=== PATIENT | male | born 1960 | race Caucasian/White ===

== ENCOUNTER 2018-01-17 07:53 | Day surgery (SDC) | payer OTHER ==
[2018-01-09 11:57] VITALS: BMI 50.2
[2018-01-17 08:18] VITALS: TEMP 98.2
[2018-01-17] MEDS ORDERED: PROPOFOL 20 ML ONE ×2 (09:12)
[2018-01-17 10:23] VITALS: BP 121/71; PULSE 82
--- NOTE | 2018-01-19 15:32 | PATH ---
Surgical Pathology Report Patient Name: ELEAZAR SEXTON [facility]. Rec. #: [id number] /Age/Gender: 1960 (Age: 57) / M Account: [id number] Location: [facility] Taken: 01/17/2018 Received: 01/17/2018 Reported: 01/19/2018 Physicians: Dwaine Sainz M.D. Specimen(s) Received A: SPLENIC FLEXURE B: LEFT COLON Clinical History Rule out colon cancer, history of polyps Postoperative diagnosis: Diverticulosis, colon polyps Final Diagnosis A. SPLENIC FLEXURE, POLYP, POLYPECTOMY: TUBULAR ADENOMA. B. LEFT COLON, POLYP, BIOPSY: TUBULAR ADENOMA. Electronically Signed Marti Cardona M.D. Gross Description A. Received in formalin, labeled "splenic flexure polyp" is a garcia, irregular portion of soft tissue measuring 0.4 cm. in greatest dimension. The specimen is submitted in toto in one cassette. B. Received in formalin, labeled "left colon polyp" is a garcia, irregular portion of soft tissue measuring 0.2 cm. in greatest dimension. The specimen is submitted in toto in one cassette. DL01/18/2018 saudi01/18/2018
== END 2018-01-17 10:10 | disposition home or self-care (01) ==
LOC: FASU-ENDO 07:53
PROVIDERS: ATTEND Internal Medicine Gastroenterology
PROC: 0DBM8ZZ Excision of Descending Colon, Via Natural or Artificial Opening Endoscopic (ICD-10-PCS; 2018-01-17)
PROC: 0DBL8ZX Excision of Transverse Colon, Via Natural or Artificial Opening Endoscopic, Diagnostic (ICD-10-PCS; principal; 2018-01-17 08:30)
DX: Z86.010 Personal history of colon polyps (principal); K57.30 Diverticulosis of large intestine without perforation or abscess without bleeding; D12.3 Benign neoplasm of transverse colon; D12.4 Benign neoplasm of descending colon; I25.10 Atherosclerotic heart disease of native coronary artery without angina pectoris; I10 Essential (primary) hypertension; Z95.5 Presence of coronary angioplasty implant and graft; E78.00 Pure hypercholesterolemia, unspecified
CPT/HCPCS: 88305-TC

== ENCOUNTER 2021-06-03 07:21 | Day surgery (SDC) | payer OTHER ==
[2021-06-01 09:59] VITALS: BMI 48.7
[2021-06-03] MEDS ORDERED: LIDOCAINE HCL/PF 2% SDV 5ML VIAL ONE (07:59)
[2021-06-03] MEDS ORDERED: PROPOFOL 20 ML ONE ×5 (07:59→08:26)
[2021-06-03 09:30] VITALS: PULSE 68; TEMP 97.7
[2021-06-03 09:32] VITALS: BP 138/77
== END 2021-06-03 09:20 | disposition home or self-care (01) ==
LOC: FASU-ENDO 07:21
PROVIDERS: ATTEND Internal Medicine Gastroenterology
PROC: 0DJD8ZZ Inspection of Lower Intestinal Tract, Via Natural or Artificial Opening Endoscopic (ICD-10-PCS; principal; 2021-06-03 08:12)
DX: Z86.010 Personal history of colon polyps (principal); K62.5 Hemorrhage of anus and rectum; K64.1 Second degree hemorrhoids